=== PATIENT | male | born 1990 | race Caucasian/White ===

== ENCOUNTER 2018-10-11 08:12 | Day surgery (SDC) | payer OTHER ==
[~2018-10-11] VITALS: Ht 180.3 cm; Wt 77.1 kg
[2018-10-11] MEDS ORDERED: LIDOCAINE 2% 100 MG/5 ML UJET TP ONE (10:38)
[2018-10-11] MEDS ORDERED: fentaNYL 0.05 MG/ML VIAL ONE (10:38)
[2018-10-11] MEDS ORDERED: fentaNYL 0.05 MG/ML VIAL IVP ONE (11:15)
== END 2018-10-11 11:15 | disposition home or self-care (01) ==
LOC: MOR 08:12 → MTU 08:13 → MOR 11:15
PROVIDERS: ATTEND Internal Medicine Gastroenterology
DX: K64.8 Other hemorrhoids (principal); K62.5 Hemorrhage of anus and rectum
CPT/HCPCS: 45378; J3010